=== PATIENT | female | born 1940 | race Caucasian/White ===

== ENCOUNTER 2016-10-01 11:49 | Emergency (ER) | payer MEDICARE, MEDICAID ==
[~2016-10-01] VITALS: Ht 157.5 cm; Wt 77.3 kg
[~2016-10-01 11:49] MED LIST: ESCI10TA PO; LEVO112T4 PO; LORA-192 PO; RISP1TAB89 PO; SIMV5TAB6 PO; TEMA15CA PO
[2016-10-01] MEDS ORDERED: ALBU8HFA4 IH (12:01)
[2016-10-01] MEDS ORDERED: METO-325 PO (12:01)
[2016-10-01] MEDS ORDERED: LORazepam 2 MG TABLET PO ONE (13:45)
[2016-10-01 16:40] VITALS: BP 146/96
== END 2016-10-01 17:47 | disposition home or self-care (01) ==
LOC: EMS 11:53
DX: R06.02 Shortness of breath (principal); F41.9 Anxiety disorder, unspecified; J45.909 Unspecified asthma, uncomplicated; E78.00 Pure hypercholesterolemia, unspecified; I10 Essential (primary) hypertension; E03.9 Hypothyroidism, unspecified; F17.200 Nicotine dependence, unspecified, uncomplicated
CPT/HCPCS: 99284; 99406

== ENCOUNTER 2017-03-31 00:01 | Outpatient (RCR) | payer MEDICARE, MEDICAID, SELFPAY ==
[2015-01-22 10:17] VITALS: BP 134/70
[~2017-03-31 00:01] MED LIST changes: +ADV250 IH; +ADV500 IH; +ADVAIR IH; +ALBU8HFA4 IH; +ALBUTEROL INH; +AMLO-511 PO; +AMLO1TAB12 PO; +AMLO2.5T PO; +CARV3 PO; +DIAZ5TAB4 PO; +FLUT1DIS3 IH; +LEVO150 PO; +LISI-660 PO; +LISI2.5T2 PO; +LORA0.5T2 PO; +LORA1TAB3 PO; +MACR100 PO; +METO50TA12 PO; +OMEP20 PO; +PGLA4I IM; +PREG75 GT; +RISP2 PO; +SIMV-260 PO; +TRAZ-147 PO; +TYL3 PO; +ZOLP10TA6 PO; +ZOLP10TA7 PO; +ZOLP5 PO; +ZOLP5TAB8 PO
== END 2017-04-29 | disposition home or self-care (01) ==
LOC: IOPBV 00:01
PROVIDERS: ATTEND Psychiatry & Neurology Psychiatry
DX: F25.9 Schizoaffective disorder, unspecified (principal); I51.89 Other ill-defined heart diseases; I10 Essential (primary) hypertension; J45.909 Unspecified asthma, uncomplicated; F32.9 Major depressive disorder, single episode, unspecified; F41.9 Anxiety disorder, unspecified; Z87.09 Personal history of other diseases of the respiratory system; Z87.42 Personal history of other diseases of the female genital tract; Z87.448 Personal history of other diseases of urinary system; Z90.5 Acquired absence of kidney; Z95.0 Presence of cardiac pacemaker
CPT/HCPCS: 90853

== ENCOUNTER 2017-07-05 12:38 | Inpatient (IN) | payer MEDICARE, MEDICAID ==
[~2017-07-05] VITALS: Ht 152.4 cm; Wt 76.0 kg
[~2017-07-05 12:38] MED LIST changes: -ADV250 IH; -ADV500 IH; -ADVAIR IH; -ALBUTEROL INH; -AMLO-511 PO; -AMLO1TAB12 PO; -AMLO2.5T PO; -CARV3 PO; -DIAZ5TAB4 PO; -FLUT1DIS3 IH; -LEVO150 PO; -LISI-660 PO; -LISI2.5T2 PO; -LORA0.5T2 PO; -LORA1TAB3 PO; -MACR100 PO; +METO-558 PO; -METO50TA12 PO; -OMEP20 PO; -PGLA4I IM; -PREG75 GT; -RISP2 PO; -SIMV-260 PO; -TRAZ-147 PO; -TYL3 PO; -ZOLP10TA6 PO; -ZOLP10TA7 PO; -ZOLP5 PO; -ZOLP5TAB8 PO
[2017-07-05] MEDS ORDERED: ACETAMINOPHEN 500 MG TABLET PO ONE (13:00)
[2017-07-05 13:32] LABS: EOSINOPHILS # (AUTO) 0.01 K/uL (0.00-0.70); EOSINOPHILS % (AUTO) 0.06 % (1.0-6.0); HEMATOCRIT 28.9 % (36-46); HEMOGLOBIN 9.4 g/dL (12.0-16.0); LYMPHOCYTES # (AUTO) 1.2 K/uL (1.0-4.8); LYMPHOCYTES % (AUTO) 12.7 % (22.0-44.0); MEAN CORPUSCULAR HEMOGLOBIN 28.9 pg (26.0-34.0); MEAN CORPUSCULAR HGB CONC 32.4 G/dL (31.0-37.0); MEAN CORPUSCULAR VOLUME 89 fL (80-100); MONOCYTES # (AUTO) 0.4 K/uL (0.1-1.0); MONOCYTES % (AUTO) 4.4 % (2.0-9.0); NEUTROPHILS # (AUTO) 7.9 K/uL (1.8-7.7); NEUTROPHILS % (AUTO) 82.7 % (40.0-70.0); PLATELET COUNT (AUTO) 301 K/uL (150-450); RED BLOOD CELL COUNT(AUTO) 3.23 MIL/uL (4.00-5.20); RED CELL DISTRIBUTION WIDTH 17.2 % (11.5-14.5); WHITE BLOOD COUNT (AUTO) 9.5 K/uL (4.5-11.0)
[2017-07-05 13:37] LABS: RBC MORPHOLOGY COMMENT ABNORMAL RBC MORPH
[2017-07-05 13:51] LABS: ANION GAP 17 mmol/L (8-16); CALCIUM, TOTAL 9.3 mg/dL (8.8-10.5); CARBON DIOXIDE 21 mmol/L (22-29); CHLORIDE 101 mmol/L (98-107); GLOMERULAR FILTR. RATE CALC 20 mL/min (>60); POTASSIUM 3.8 mmol/L (3.5-5.1); SODIUM SERUM 139 mmol/L (136-145); UREA NITROGEN, BLOOD 47 mg/dL (7-18)
[2017-07-05 13:58] LABS: ADD UA MICROSCOPIC YES; APPEARANCE,URINE CLOUDY (CLEAR); GLUCOSE, URINE (UA) NEGATIVE (NEGATIVE); KETONES,URINE NEGATIVE (NEGATIVE); LEUKOCYTE ESTERASE ,URINE SMALL (NEGATIVE); OCCULT BLOOD,URINE NEGATIVE (NEGATIVE); PROTEIN,URINE TRACE (NEGATIVE)
[2017-07-05 14:15] LABS: ALANINE AMINOTRANSFERASE 40 U/L (12-78); ALBUMIN 3.6 g/dL (3.4-5.0); ASPARTATE AMINOTRANSFERASE 51 U/L (15-37); BILIRUBIN,TOTAL 0.5 mg/dL (0.1-1.0); CREATINE KINASE MB 3.3 ng/mL (0-5); CREATINE KINASE, TOTAL 136 U/L (26-192)
[2017-07-05 14:22] LABS: RBC,URINE None Seen /HPF (0-2); SQUAMOUS EPITHELIAL CELL,UR Few /LPF (None Seen)
[2017-07-05] MEDS ORDERED: BISACODYL 10 MG RECTAL RECTAL SUPPOSITORY PR PRN (15:15)
[2017-07-05] MEDS ORDERED: MAGNESIUM HYDROXIDE SUSPENSION 30 ML UDCUP PO PRN (15:15)
[2017-07-05] MEDS ORDERED: ACETAMINOPHEN 325 MG TABLET PO PRN ×2 (15:15)
[2017-07-05] MEDS ORDERED: 0.9% SODIUM CHLORIDE 10 ML SYRINGE IVP PRN (15:15)
[2017-07-05] MEDS: SODIUM CHLORIDE 0.9% 1,000 ML IV SCH (15:38)
[2017-07-05] MEDS: CefTRIAXone 1 GM/DEXTROSE 50 ML IV SCH (15:59)
[2017-07-05] MEDS: HEPARIN SODIUM,PORCINE 5,000 UNITS/ML VIAL SQ SCH (16:00)
[2017-07-05 16:44] VITALS: BP 138/75
[2017-07-05] MEDS ORDERED: CARV25 PO (17:46)
[2017-07-05] MEDS ORDERED: FURO40I IM (17:46)
[2017-07-05] MEDS ORDERED: CLON-570 PO (17:46)
[2017-07-05] MEDS ORDERED: HYDR-2924 PO (17:46)
[2017-07-05] MEDS ORDERED: ASPI81 PO (17:47)
[2017-07-05] MEDS ORDERED: COD30 PO (17:47)
[2017-07-05] MEDS ORDERED: NIFE60TA71 PO (17:47)
[2017-07-05] MEDS ORDERED: ATOR10TA84 PO (17:49)
[2017-07-05 19:17] VITALS: BP 156/73
[2017-07-05] MEDS: DOCUSATE SODIUM 100 MG CAPSULE PO SCH (20:00)
[2017-07-06] VITALS (7 sets, daily range): BP systolic 158–190; BP diastolic 61–85
[2017-07-06] MEDS: HEPARIN SODIUM,PORCINE 5,000 UNITS/ML VIAL SQ SCH ×4 (00:40→23:38)
[2017-07-06] MEDS: SIMVASTATIN 10 MG TABLET PO SCH ×2 (00:40→20:18)
[2017-07-06] MEDS: LEVOTHYROXINE SODIUM 112 MCG TABLET PO SCH (07:04)
[2017-07-06 07:23] LABS: BASOPHILS # (AUTO) 0.02 K/uL (0.00-0.20); BASOPHILS % (AUTO) 0.3 % (0.0-2.0); EOSINOPHILS # (AUTO) 0.01 K/uL (0.00-0.70); HEMATOCRIT 24.6 % (36-46); HEMOGLOBIN 8.2 g/dL (12.0-16.0); LYMPHOCYTES # (AUTO) 1.5 K/uL (1.0-4.8); LYMPHOCYTES % (AUTO) 19.6 % (22.0-44.0); MEAN CORPUSCULAR HEMOGLOBIN 29.1 pg (26.0-34.0); MEAN CORPUSCULAR HGB CONC 33.5 G/dL (31.0-37.0); MEAN CORPUSCULAR VOLUME 87 fL (80-100); MONOCYTES # (AUTO) 0.4 K/uL (0.1-1.0); MONOCYTES % (AUTO) 5.1 % (2.0-9.0); NEUTROPHILS # (AUTO) 5.8 K/uL (1.8-7.7); NEUTROPHILS % (AUTO) 74.8 % (40.0-70.0); PLATELET COUNT (AUTO) 269 K/uL (150-450); RED BLOOD CELL COUNT(AUTO) 2.83 MIL/uL (4.00-5.20); WHITE BLOOD COUNT (AUTO) 7.7 K/uL (4.5-11.0)
[2017-07-06 07:31] LABS: ALBUMIN 2.9 g/dL (3.4-5.0); BILIRUBIN,TOTAL 0.4 mg/dL (0.1-1.0); CALCIUM, TOTAL 8.7 mg/dL (8.8-10.5); CREATININE 2.2 mg/dL (0.60-1.30); POTASSIUM 3.5 mmol/L (3.5-5.1); TOTAL PROTEIN, SERUM 6.9 g/dL (6.4-8.2)
[2017-07-06] MEDS: METOPROLOL SUCCINATE 50 MG ER TABLET PO SCH (08:03)
[2017-07-06] MEDS: PANTOPRAZOLE SODIUM 40 MG DR TABLET PO SCH (08:03)
[2017-07-06] MEDS: SODIUM CHLORIDE 0.9% 1,000 ML IV SCH (08:03)
[2017-07-06] MEDS: DOCUSATE SODIUM 100 MG CAPSULE PO SCH ×2 (08:03→20:19)
[2017-07-06] MEDS: NIFEdipine 60 MG ER TABLET PO SCH ×2 (11:58→20:19)
[2017-07-06] MEDS ORDERED: FUROSEMIDE 20 MG/2 ML VIAL IVP ONE ×2 (13:30→14:30)
[2017-07-06] MEDS ORDERED: ALBUTEROL SULFATE 2.5 MG/0.5 ML NEB SOLUTION NEB PRN (13:30)
[2017-07-06] MEDS: IPRATROPIUM BROMIDE 0.5 MG/2.5 ML NEB SOLUTION NEB PRN (14:00)
[2017-07-06 14:09] LABS: ABG BASE EXCESS -7.9 mmol/L (-2.0-3.0); ABG HCO3 18.4 mmol/L (22.0-26.0); ABG OXYHEMOGLOBIN 95.8 % (94.0-100.0); ABG PCO2 43 mmHg (35-45); ABG PH 7.265 (7.35-7.450)
[2017-07-06 14:10] LABS: ABG A-A DIFF O2 556.5 mmHg (10-20.0); ALLEN TEST, BLOOD GAS Positive
[2017-07-06] MEDS: CefTRIAXone 1 GM/DEXTROSE 50 ML IV SCH (15:30)
[2017-07-06] MEDS: HydrALAZINE HCL 50 MG TABLET PO SCH ×2 (17:24→20:18)
[2017-07-06] MEDS: CloNIDine HCL 0.1 MG TABLET PO SCH ×2 (17:24→20:19)
[2017-07-06] MEDS: FUROSEMIDE 40 MG/4 ML VIAL IVP SCH (20:18)
[2017-07-06] MEDS ORDERED: FUROSEMIDE 20 MG/2 ML VIAL IVP SCH (21:00)
[2017-07-07] VITALS (8 sets, daily range): BP systolic 148–161; BP diastolic 61–88
[2017-07-07 06:10] LABS: BASOPHILS % (AUTO) 1.2 % (0.0-2.0); EOSINOPHILS % (AUTO) 0.1 % (1.0-6.0); HEMATOCRIT 24.1 % (36-46); LYMPHOCYTES # (AUTO) 1.7 K/uL (1.0-4.8); LYMPHOCYTES % (AUTO) 18.8 % (22.0-44.0); MEAN CORPUSCULAR HEMOGLOBIN 29.2 pg (26.0-34.0); MEAN CORPUSCULAR VOLUME 88 fL (80-100); MONOCYTES # (AUTO) 0.6 K/uL (0.1-1.0); MONOCYTES % (AUTO) 6.7 % (2.0-9.0); NEUTROPHILS # (AUTO) 6.5 K/uL (1.8-7.7); NEUTROPHILS % (AUTO) 73.2 % (40.0-70.0); PLATELET COUNT (AUTO) 233 K/uL (150-450); RED BLOOD CELL COUNT(AUTO) 2.73 MIL/uL (4.00-5.20); RED CELL DISTRIBUTION WIDTH 16.9 % (11.5-14.5); WHITE BLOOD COUNT (AUTO) 8.9 K/uL (4.5-11.0)
[2017-07-07 06:13] LABS: ALBUMIN 2.7 g/dL (3.4-5.0); BILIRUBIN,TOTAL 0.3 mg/dL (0.1-1.0); CALCIUM, TOTAL 8.5 mg/dL (8.8-10.5); CREATININE 2.17 mg/dL (0.60-1.30); POTASSIUM 3.6 mmol/L (3.5-5.1); TOTAL PROTEIN, SERUM 6.6 g/dL (6.4-8.2)
[2017-07-07] MEDS: LEVOTHYROXINE SODIUM 112 MCG TABLET PO SCH (06:20)
[2017-07-07] MEDS: DOCUSATE SODIUM 100 MG CAPSULE PO SCH ×2 (09:43→20:57)
[2017-07-07] MEDS: HEPARIN SODIUM,PORCINE 5,000 UNITS/ML VIAL SQ SCH ×3 (09:43→23:17)
[2017-07-07] MEDS: ATORVASTATIN CALCIUM 10 MG TABLET PO SCH (09:43)
[2017-07-07] MEDS: FUROSEMIDE 40 MG/4 ML VIAL IVP SCH ×3 (09:43→20:57)
[2017-07-07] MEDS: PANTOPRAZOLE SODIUM 40 MG DR TABLET PO SCH (09:43)
[2017-07-07] MEDS: MULTIVITAMINS WITH MINERALS, THERAPEUTIC TABLET PO SCH (09:45)
[2017-07-07] MEDS: METOPROLOL SUCCINATE 50 MG ER TABLET PO SCH (09:48)
[2017-07-07] MEDS: CloNIDine HCL 0.1 MG TABLET PO SCH ×3 (09:48→20:57)
[2017-07-07] MEDS: HydrALAZINE HCL 50 MG TABLET PO SCH ×3 (12:32→20:57)
[2017-07-07] MEDS: NIFEdipine 60 MG ER TABLET PO SCH ×2 (12:32→20:57)
[2017-07-07] MEDS: CefTRIAXone 1 GM/DEXTROSE 50 ML IV SCH (15:53)
[2017-07-07] MEDS: MORPHINE SULFATE 2 MG/ML SYRINGE IVP PRN (15:54)
[2017-07-07] MEDS: SIMVASTATIN 10 MG TABLET PO SCH (20:57)
[2017-07-08 00:11] VITALS: BP 157/67
[2017-07-08 05:23] VITALS: BP 160/70
[2017-07-08 06:01] LABS: BASOPHILS % (AUTO) 0.7 % (0.0-2.0); EOSINOPHILS % (AUTO) 0.3 % (1.0-6.0); HEMATOCRIT 23.6 % (36-46); HEMOGLOBIN 7.7 g/dL (12.0-16.0); LYMPHOCYTES % (AUTO) 24.2 % (22.0-44.0); MEAN CORPUSCULAR HEMOGLOBIN 28.9 pg (26.0-34.0); MEAN CORPUSCULAR HGB CONC 32.8 G/dL (31.0-37.0); MEAN CORPUSCULAR VOLUME 88 fL (80-100); MONOCYTES # (AUTO) 0.4 K/uL (0.1-1.0); MONOCYTES % (AUTO) 4.3 % (2.0-9.0); NEUTROPHILS # (AUTO) 5.8 K/uL (1.8-7.7); NEUTROPHILS % (AUTO) 70.5 % (40.0-70.0); PLATELET COUNT (AUTO) 222 K/uL (150-450); RED BLOOD CELL COUNT(AUTO) 2.67 MIL/uL (4.00-5.20); RED CELL DISTRIBUTION WIDTH 17.2 % (11.5-14.5); WHITE BLOOD COUNT (AUTO) 8.2 K/uL (4.5-11.0)
[2017-07-08 06:17] LABS: ALBUMIN 2.8 g/dL (3.4-5.0); BILIRUBIN,TOTAL 0.3 mg/dL (0.1-1.0); CALCIUM, TOTAL 8.6 mg/dL (8.8-10.5); CREATININE 2.22 mg/dL (0.60-1.30); POTASSIUM 3.5 mmol/L (3.5-5.1); TOTAL PROTEIN, SERUM 6.5 g/dL (6.4-8.2)
[2017-07-08] MEDS: LEVOTHYROXINE SODIUM 112 MCG TABLET PO SCH (06:34)
[2017-07-08 07:25] VITALS: BP 158/73
[2017-07-08] MEDS: HEPARIN SODIUM,PORCINE 5,000 UNITS/ML VIAL SQ SCH ×2 (08:22→15:08)
[2017-07-08] MEDS: FUROSEMIDE 40 MG/4 ML VIAL IVP SCH (08:22)
[2017-07-08] MEDS: ATORVASTATIN CALCIUM 10 MG TABLET PO SCH (08:26)
[2017-07-08] MEDS: HydrALAZINE HCL 50 MG TABLET PO SCH ×3 (08:26→20:46)
[2017-07-08] MEDS: MULTIVITAMINS WITH MINERALS, THERAPEUTIC TABLET PO SCH (08:26)
[2017-07-08] MEDS: DOCUSATE SODIUM 100 MG CAPSULE PO SCH ×2 (08:26→20:46)
[2017-07-08] MEDS: PANTOPRAZOLE SODIUM 40 MG DR TABLET PO SCH (08:26)
[2017-07-08] MEDS: NIFEdipine 60 MG ER TABLET PO SCH ×2 (08:27→20:47)
[2017-07-08] MEDS: CloNIDine HCL 0.1 MG TABLET PO SCH ×3 (09:54→20:47)
[2017-07-08] MEDS: METOPROLOL SUCCINATE 50 MG ER TABLET PO SCH (09:54)
[2017-07-08 11:27] VITALS: BP 160/71
[2017-07-08] MEDS: HYDROCODONE/ACETAMINOPHEN 5-325 MG TABLET PO PRN (14:32)
[2017-07-08] MEDS: BUMETANIDE 0.25 MG/ML 10 ML VIAL IVP SCH ×2 (15:06→23:43)
[2017-07-08] MEDS: CefTRIAXone 1 GM/DEXTROSE 50 ML IV SCH (15:09)
[2017-07-08 15:23] VITALS: BP 156/61
[2017-07-08 19:40] VITALS: BP 154/50
[2017-07-08] MEDS: SIMVASTATIN 10 MG TABLET PO SCH (20:46)
[2017-07-08] MEDS ORDERED: PANTOPRAZOLE SODIUM 40 MG/VIAL IVP SCH (22:00)
[2017-07-08 22:36] LABS: HEMATOCRIT 18.1 % (36-46); HEMOGLOBIN 6.1 g/dL (12.0-16.0)
[2017-07-08] MEDS ORDERED: SODIUM CHLORIDE 0.9% 500 ML IV ONE (23:37)
[2017-07-09] VITALS (34 sets, daily range): BP systolic 151–207; BP diastolic 66–113
[2017-07-09] MEDS: PANTOPRAZOLE SODIUM 80 MG in SODIUM CHLORIDE 0.9% 100 ML IV SCH ×3 (00:59→20:06)
[2017-07-09] MEDS: HYDROCODONE/ACETAMINOPHEN 5-325 MG TABLET PO PRN ×2 (01:30→20:06)
[2017-07-09 06:14] LABS: BASOPHILS % (AUTO) 1.8 % (0.0-2.0); EOSINOPHILS % (AUTO) 0.2 % (1.0-6.0); HEMATOCRIT 22.4 % (36-46); HEMOGLOBIN 7.4 g/dL (12.0-16.0); LYMPHOCYTES # (AUTO) 2.1 K/uL (1.0-4.8); LYMPHOCYTES % (AUTO) 27.5 % (22.0-44.0); MEAN CORPUSCULAR HEMOGLOBIN 28.9 pg (26.0-34.0); MEAN CORPUSCULAR HGB CONC 32.9 G/dL (31.0-37.0); MEAN CORPUSCULAR VOLUME 88 fL (80-100); MONOCYTES # (AUTO) 0.4 K/uL (0.1-1.0); MONOCYTES % (AUTO) 5.8 % (2.0-9.0); NEUTROPHILS % (AUTO) 64.7 % (40.0-70.0); PLATELET COUNT (AUTO) 214 K/uL (150-450); RED BLOOD CELL COUNT(AUTO) 2.55 MIL/uL (4.00-5.20); RED CELL DISTRIBUTION WIDTH 16.6 % (11.5-14.5); WHITE BLOOD COUNT (AUTO) 7.8 K/uL (4.5-11.0)
[2017-07-09] MEDS: LEVOTHYROXINE SODIUM 112 MCG TABLET PO SCH (06:30)
[2017-07-09 07:16] LABS: CALCIUM, TOTAL 8.3 mg/dL (8.8-10.5); CREATININE 2.05 mg/dL (0.60-1.30); MAGNESIUM 2.2 mg/dL (1.80-2.40); PHOSPHORUS 3.3 mg/dL (2.5-4.9); POTASSIUM 3.9 mmol/L (3.5-5.1)
[2017-07-09] MEDS: ATORVASTATIN CALCIUM 10 MG TABLET PO SCH (08:44)
[2017-07-09] MEDS: METOPROLOL SUCCINATE 50 MG ER TABLET PO SCH (08:44)
[2017-07-09] MEDS: DOCUSATE SODIUM 100 MG CAPSULE PO SCH ×2 (08:44→20:06)
[2017-07-09] MEDS: BUMETANIDE 0.25 MG/ML 10 ML VIAL IVP SCH ×2 (08:44→20:05)
[2017-07-09] MEDS: HydrALAZINE HCL 50 MG TABLET PO SCH ×3 (08:44→20:05)
[2017-07-09] MEDS: CloNIDine HCL 0.1 MG TABLET PO SCH ×3 (08:44→20:06)
[2017-07-09] MEDS: NIFEdipine 60 MG ER TABLET PO SCH ×2 (08:44→20:52)
[2017-07-09] MEDS: MULTIVITAMINS WITH MINERALS, THERAPEUTIC TABLET PO SCH (08:44)
[2017-07-09 11:34] LABS: HEMOGLOBIN 6.7 g/dL (12.0-16.0)
[2017-07-09 11:35] LABS: HEMATOCRIT 20.2 % (36-46)
[2017-07-09] MEDS ORDERED: METOLAZONE 5 MG TABLET PO ONE (11:45)
[2017-07-09] MEDS ORDERED: SODIUM CHLORIDE 0.9% 500 ML IV ONE ×2 (12:23→17:14)
[2017-07-09 14:53] LABS: INR 1.3 (0.9-1.1); PROTHROMBIN TIME 13.4 SEC (9.4-11.6)
[2017-07-09 15:52] LABS: ABG A-A DIFF O2 70.7 mmHg (10-20.0); ABG BASE EXCESS -1.3 mmol/L (-2.0-3.0); ABG HCO3 23.6 mmol/L (22.0-26.0); ABG OXYHEMOGLOBIN 96.5 % (94.0-100.0); ABG PCO2 31 mmHg (35-45); ABG PH 7.475 (7.35-7.450); TEMPERATURE, FAHRENHEIT, BG 97.8 FAHREN (96.0-98.6)
[2017-07-09] MEDS ORDERED: SODIUM CHLORIDE 0.9% 1,000 ML IV ONE (16:16)
[2017-07-09 16:17] LABS: ALLEN TEST, BLOOD GAS POS
[2017-07-09 16:18] LABS: IPAP, BG 14 cm H2O
[2017-07-09] MEDS: CefTRIAXone 1 GM/DEXTROSE 50 ML IV SCH (17:11)
[2017-07-09] MEDS ORDERED: LIDOCAINE HCL 1% 10 ML VIAL SQ ONE (18:45)
[2017-07-09] MEDS ORDERED: 0.9% SODIUM CHLORIDE 10 ML SYRINGE IVP PRN (18:45)
[2017-07-09] MEDS: SIMVASTATIN 10 MG TABLET PO SCH (20:06)
[2017-07-09 21:45] LABS: HEMATOCRIT 27.7 % (36-46)
[2017-07-10] VITALS (23 sets, daily range): BP systolic 155–214; BP diastolic 60–85
[2017-07-10] MEDS ORDERED: CloNIDine HCL 0.2 MG TABLET PO PRN
[2017-07-10 05:35] LABS: BASOPHILS # (AUTO) 0.04 K/uL (0.00-0.20); BASOPHILS % (AUTO) 0.5 % (0.0-2.0); EOSINOPHILS # (AUTO) 0.03 K/uL (0.00-0.70); EOSINOPHILS % (AUTO) 0.32 % (1.0-6.0); LYMPHOCYTES % (AUTO) 24.6 % (22.0-44.0); MEAN CORPUSCULAR HGB CONC 33.7 G/dL (31.0-37.0); MEAN CORPUSCULAR VOLUME 89 fL (80-100); MONOCYTES # (AUTO) 0.5 K/uL (0.1-1.0); MONOCYTES % (AUTO) 6.5 % (2.0-9.0); NEUTROPHILS # (AUTO) 5.6 K/uL (1.8-7.7); NEUTROPHILS % (AUTO) 68.1 % (40.0-70.0); RED BLOOD CELL COUNT(AUTO) 2.34 MIL/uL (4.00-5.20); RED CELL DISTRIBUTION WIDTH 15.2 % (11.5-14.5); WHITE BLOOD COUNT (AUTO) 8.2 K/uL (4.5-11.0)
[2017-07-10] MEDS: LEVOTHYROXINE SODIUM 112 MCG TABLET PO SCH (05:35)
[2017-07-10] MEDS: HydrALAZINE HCL 20 MG/ML VIAL IVP PRN (05:42)
[2017-07-10 05:44] LABS: CALCIUM, TOTAL 7.7 mg/dL (8.8-10.5); CREATININE 1.96 mg/dL (0.60-1.30); POTASSIUM 3.9 mmol/L (3.5-5.1)
[2017-07-10 06:16] LABS: HEMATOCRIT 20.8 % (36-46)
[2017-07-10] MEDS: PANTOPRAZOLE SODIUM 80 MG in SODIUM CHLORIDE 0.9% 100 ML IV SCH ×2 (06:38→16:04)
[2017-07-10 07:07] LABS: PLATELET COUNT (AUTO) 129 K/uL (150-450)
[2017-07-10] MEDS ORDERED: SODIUM CHLORIDE 0.9% 500 ML IV ONE (08:16)
[2017-07-10] MEDS ORDERED: DESMOPRESSIN ACETATE 20 MCG in SODIUM CHLORIDE 0.9% 50 ML IV ONE (08:45)
[2017-07-10] MEDS: CloNIDine HCL 0.2 MG TABLET PO SCH ×3 (09:00→20:36)
[2017-07-10] MEDS: DOCUSATE SODIUM 100 MG CAPSULE PO SCH ×2 (09:00→20:37)
[2017-07-10] MEDS: CARVEDILOL 25 MG TABLET PO SCH ×2 (09:00→20:37)
[2017-07-10] MEDS: ATORVASTATIN CALCIUM 10 MG TABLET PO SCH (09:00)
[2017-07-10] MEDS: METOPROLOL SUCCINATE 50 MG ER TABLET PO SCH (09:00)
[2017-07-10] MEDS: HydrALAZINE HCL 50 MG TABLET PO SCH ×3 (09:00→20:36)
[2017-07-10] MEDS: MULTIVITAMINS WITH MINERALS, THERAPEUTIC TABLET PO SCH (09:00)
[2017-07-10] MEDS: NIFEdipine 60 MG ER TABLET PO SCH ×2 (09:00→20:37)
[2017-07-10] MEDS: BUMETANIDE 0.25 MG/ML 10 ML VIAL IVP SCH ×2 (09:13→20:36)
[2017-07-10] MEDS: LABETALOL HCL 5 MG/ML 20 ML VIAL IVP PRN ×2 (09:14→11:10)
[2017-07-10] MEDS: EPOETIN ALFA 10,000 UNITS/ML VIAL SQ SCH (11:40)
[2017-07-10 11:41] LABS: HEMATOCRIT 22.4 % (36-46); HEMOGLOBIN 7.8 g/dL (12.0-16.0)
[2017-07-10] MEDS ORDERED: LIDOCAINE HCL/PF 2% 5 ML VIAL INJ ONE (12:00)
[2017-07-10] MEDS ORDERED: PHENYLEPHRINE HCL 10 MG/ML VIAL IVP ONE (12:00)
[2017-07-10] MEDS ORDERED: MIDAZOLAM HCL 5 MG/ML VIAL ONE (12:15)
[2017-07-10] MEDS ORDERED: FentaNYL CITRATE-PF 100 MCG/2 ML VIAL ONE (12:15)
[2017-07-10] MEDS ORDERED: SODIUM CHLORIDE 0.9% 1,000 ML IV ONE (12:25)
[2017-07-10] MEDS: ONDANSETRON HCL 4 MG/2 ML VIAL IVP PRN (12:57)
[2017-07-10] MEDS ORDERED: EPINEPHrine 1:10,000 [1 MG/10 ML] SYRINGE ONE (13:01)
[2017-07-10] MEDS: HYDROCODONE/ACETAMINOPHEN 5-325 MG TABLET PO PRN (13:37)
[2017-07-10] MEDS ORDERED: SODIUM CHLORIDE 0.9% 100 ML ONE (15:41)
[2017-07-10] MEDS: CefTRIAXone 1 GM/DEXTROSE 50 ML IV SCH (16:03)
[2017-07-10 17:17] LABS: HEMATOCRIT 20.1 % (36-46); HEMOGLOBIN 6.8 g/dL (12.0-16.0)
[2017-07-10] MEDS: MORPHINE SULFATE 2 MG/ML SYRINGE IVP PRN (19:25)
[2017-07-10] MEDS: SIMVASTATIN 10 MG TABLET PO SCH (20:36)
[2017-07-10 22:19] LABS: HEMATOCRIT 22.7 % (36-46); HEMOGLOBIN 7.7 g/dL (12.0-16.0)
[2017-07-11] VITALS (21 sets, daily range): BP systolic 113–167; BP diastolic 45–71
[2017-07-11] MEDS: PANTOPRAZOLE SODIUM 80 MG in SODIUM CHLORIDE 0.9% 100 ML IV SCH ×3 (02:07→22:36)
[2017-07-11 05:11] LABS: BASOPHILS # (AUTO) 0.06 K/uL (0.00-0.20); BASOPHILS % (AUTO) 0.6 % (0.0-2.0); EOSINOPHILS # (AUTO) 0.04 K/uL (0.00-0.70); EOSINOPHILS % (AUTO) 0.44 % (1.0-6.0); HEMATOCRIT 22.5 % (36-46); HEMOGLOBIN 7.5 g/dL (12.0-16.0); LYMPHOCYTES % (AUTO) 21.8 % (22.0-44.0); MEAN CORPUSCULAR HEMOGLOBIN 29.3 pg (26.0-34.0); MEAN CORPUSCULAR HGB CONC 33.3 G/dL (31.0-37.0); MEAN CORPUSCULAR VOLUME 88 fL (80-100); MONOCYTES # (AUTO) 0.7 K/uL (0.1-1.0); MONOCYTES % (AUTO) 7.2 % (2.0-9.0); NEUTROPHILS # (AUTO) 6.3 K/uL (1.8-7.7); PLATELET COUNT (AUTO) 119 K/uL (150-450); RED BLOOD CELL COUNT(AUTO) 2.55 MIL/uL (4.00-5.20); RED CELL DISTRIBUTION WIDTH 16.4 % (11.5-14.5)
[2017-07-11 05:18] LABS: CREATININE 2.06 mg/dL (0.60-1.30); MAGNESIUM 2.1 mg/dL (1.80-2.40); POTASSIUM 3.9 mmol/L (3.5-5.1)
[2017-07-11] MEDS: LEVOTHYROXINE SODIUM 112 MCG TABLET PO SCH (06:11)
[2017-07-11] MEDS: MULTIVITAMINS WITH MINERALS, THERAPEUTIC TABLET PO SCH (07:55)
[2017-07-11] MEDS: NIFEdipine 60 MG ER TABLET PO SCH ×2 (07:55→20:13)
[2017-07-11] MEDS: ATORVASTATIN CALCIUM 10 MG TABLET PO SCH (07:55)
[2017-07-11] MEDS: DOCUSATE SODIUM 100 MG CAPSULE PO SCH ×2 (07:55→20:13)
[2017-07-11] MEDS: METOPROLOL SUCCINATE 50 MG ER TABLET PO SCH (07:55)
[2017-07-11] MEDS: HydrALAZINE HCL 50 MG TABLET PO SCH ×3 (07:56→20:13)
[2017-07-11] MEDS: CARVEDILOL 25 MG TABLET PO SCH ×2 (07:56→21:20)
[2017-07-11] MEDS: BUMETANIDE 0.25 MG/ML 10 ML VIAL IVP SCH (07:57)
[2017-07-11] MEDS: CloNIDine HCL 0.2 MG TABLET PO SCH ×3 (07:57→20:13)
[2017-07-11 10:27] LABS: HEMOGLOBIN 5.9 g/dL (12.0-16.0)
[2017-07-11] MEDS ORDERED: SODIUM CHLORIDE 0.9% 500 ML IV ONE (10:55)
[2017-07-11] MEDS ORDERED: EPINEPHrine 1:10,000 [1 MG/10 ML] SYRINGE ONE ×2 (12:15→12:43)
[2017-07-11] MEDS ORDERED: EPINEPHrine 1:10,000 [1 MG/10 ML] SYRINGE IVP ONE (12:30)
[2017-07-11] MEDS ORDERED: GLUCAGON,HUMAN RECOMBINANT 1 MG VIAL ONE (12:43)
[2017-07-11] MEDS: ONDANSETRON HCL 4 MG/2 ML VIAL IVP PRN (12:46)
[2017-07-11] MEDS: DEXTROSE 5%-WATER 1,000 ML IV SCH (12:46)
[2017-07-11] MEDS: CefTRIAXone 1 GM/DEXTROSE 50 ML IV SCH (15:49)
[2017-07-11 18:15] LABS: HEMATOCRIT 25.9 % (36-46); HEMOGLOBIN 8.9 g/dL (12.0-16.0)
[2017-07-11] MEDS: HYDROCODONE/ACETAMINOPHEN 5-325 MG TABLET PO PRN (20:12)
[2017-07-11] MEDS: SIMVASTATIN 10 MG TABLET PO SCH (20:13)
[2017-07-11] MEDS: ZOLPIDEM TARTRATE 5 MG TABLET PO PRN (22:36)
[2017-07-12] VITALS (8 sets, daily range): BP systolic 120–159; BP diastolic 56–68
[2017-07-12 00:09] LABS: HEMATOCRIT 24.1 % (36-46); HEMOGLOBIN 8.3 g/dL (12.0-16.0)
[2017-07-12] MEDS ORDERED: LIDOCAINE HCL/PF 2% 5 ML VIAL IM ONE (04:00)
[2017-07-12] MEDS ORDERED: PROPOFOL 1% 20 ML VIAL IVP ONE (04:00)
[2017-07-12 05:20] LABS: CALCIUM, TOTAL 7.9 mg/dL (8.8-10.5); CREATININE 2.17 mg/dL (0.60-1.30); MAGNESIUM 2.1 mg/dL (1.80-2.40); PHOSPHORUS 3.7 mg/dL (2.5-4.9); POTASSIUM 3.7 mmol/L (3.5-5.1)
[2017-07-12 05:25] LABS: HEMATOCRIT 24.9 % (36-46); HEMOGLOBIN 8.5 g/dL (12.0-16.0)
[2017-07-12] MEDS: LEVOTHYROXINE SODIUM 112 MCG TABLET PO SCH (05:59)
[2017-07-12] MEDS: PANTOPRAZOLE SODIUM 80 MG in SODIUM CHLORIDE 0.9% 100 ML IV SCH ×2 (08:06→19:13)
[2017-07-12] MEDS ORDERED: BUMETANIDE 0.25 MG/ML 10 ML VIAL IVP SCH (09:00)
[2017-07-12] MEDS: HydrALAZINE HCL 50 MG TABLET PO SCH ×3 (10:27→21:00)
[2017-07-12] MEDS: ATORVASTATIN CALCIUM 10 MG TABLET PO SCH (10:28)
[2017-07-12] MEDS: CloNIDine HCL 0.2 MG TABLET PO SCH ×3 (10:28→21:00)
[2017-07-12] MEDS: DOCUSATE SODIUM 100 MG CAPSULE PO SCH ×2 (10:28→21:00)
[2017-07-12] MEDS: CARVEDILOL 25 MG TABLET PO SCH ×2 (10:28→21:39)
[2017-07-12] MEDS: METOPROLOL SUCCINATE 50 MG ER TABLET PO SCH (10:29)
[2017-07-12] MEDS: NIFEdipine 60 MG ER TABLET PO SCH ×2 (10:29→21:00)
[2017-07-12] MEDS: MULTIVITAMINS WITH MINERALS, THERAPEUTIC TABLET PO SCH (10:29)
[2017-07-12] MEDS: EPOETIN ALFA 10,000 UNITS/ML VIAL SQ SCH (10:29)
[2017-07-12 13:06] LABS: HEMATOCRIT 23.2 % (36-46)
[2017-07-12] MEDS: CefTRIAXone 1 GM/DEXTROSE 50 ML IV SCH (16:00)
[2017-07-12 18:11] LABS: HEMATOCRIT 23.2 % (36-46)
[2017-07-12] MEDS: DEXTROSE 5%-WATER 1,000 ML IV SCH (21:39)
[2017-07-12] MEDS: SIMVASTATIN 10 MG TABLET PO SCH (21:40)
[2017-07-12] MEDS: MORPHINE SULFATE 2 MG/ML SYRINGE IVP PRN (21:40)
[2017-07-13] VITALS (8 sets, daily range): BP systolic 126–168; BP diastolic 57–112
[2017-07-13] MEDS: PANTOPRAZOLE SODIUM 80 MG in SODIUM CHLORIDE 0.9% 100 ML IV SCH ×2 (03:20→13:09)
[2017-07-13] MEDS: MORPHINE SULFATE 2 MG/ML SYRINGE IVP PRN ×2 (03:21→19:47)
[2017-07-13 04:59] LABS: HEMATOCRIT 22.2 % (36-46); HEMOGLOBIN 7.6 g/dL (12.0-16.0)
[2017-07-13 05:11] LABS: CALCIUM, TOTAL 7.4 mg/dL (8.8-10.5); CREATININE 2.24 mg/dL (0.60-1.30); PHOSPHORUS 3.3 mg/dL (2.5-4.9); POTASSIUM 3.7 mmol/L (3.5-5.1)
[2017-07-13] MEDS: LEVOTHYROXINE SODIUM 112 MCG TABLET PO SCH (05:40)
[2017-07-13 08:37] LABS: GLUCOSE,POINT OF CARE 130 MG/DL (70-110)
[2017-07-13 08:38] LABS: HEMATOCRIT 24.4 % (36-46); HEMOGLOBIN 8.3 g/dL (12.0-16.0)
[2017-07-13] MEDS: DOCUSATE SODIUM 100 MG CAPSULE PO SCH ×2 (08:58→19:47)
[2017-07-13] MEDS: CloNIDine HCL 0.2 MG TABLET PO SCH ×3 (08:58→21:15)
[2017-07-13] MEDS: MULTIVITAMINS WITH MINERALS, THERAPEUTIC TABLET PO SCH (08:58)
[2017-07-13] MEDS: HydrALAZINE HCL 50 MG TABLET PO SCH ×3 (08:58→21:15)
[2017-07-13] MEDS: CARVEDILOL 25 MG TABLET PO SCH ×2 (08:58→19:47)
[2017-07-13] MEDS: NIFEdipine 60 MG ER TABLET PO SCH ×2 (08:58→19:47)
[2017-07-13] MEDS: METOPROLOL SUCCINATE 50 MG ER TABLET PO SCH (08:58)
[2017-07-13] MEDS: ATORVASTATIN CALCIUM 10 MG TABLET PO SCH (08:59)
[2017-07-13] MEDS: HYDROCODONE/ACETAMINOPHEN 5-325 MG TABLET PO PRN (09:05)
[2017-07-13] MEDS ORDERED: BUMETANIDE 0.25 MG/ML 4 ML VIAL IVP SCH (09:31)
[2017-07-13] MEDS: BUMETANIDE 0.25 MG/ML 4 ML VIAL IVP SCH (09:46)
[2017-07-13] MEDS: DEXTROSE 5%-WATER 1,000 ML IV SCH (10:27)
[2017-07-13] MEDS: IPRATROPIUM BROMIDE 0.5 MG/2.5 ML NEB SOLUTION NEB PRN (15:03)
[2017-07-13] MEDS: ALBUTEROL SULFATE 2.5 MG/0.5 ML NEB SOLUTION NEB PRN (15:03)
[2017-07-13] MEDS ORDERED: SODIUM CHLORIDE 0.9% 50 ML ONE (17:06)
[2017-07-13] MEDS: CefTRIAXone 1 GM/DEXTROSE 50 ML IV SCH (17:11)
[2017-07-13] MEDS: PANTOPRAZOLE SODIUM 40 MG DR TABLET PO SCH (19:47)
[2017-07-13] MEDS: SIMVASTATIN 10 MG TABLET PO SCH (19:47)
[2017-07-13] MEDS: LABETALOL HCL 5 MG/ML 20 ML VIAL IVP PRN (23:01)
[2017-07-14] VITALS (9 sets, daily range): BP systolic 128–167; BP diastolic 63–87
[2017-07-14 06:01] LABS: CALCIUM, TOTAL 8.2 mg/dL (8.8-10.5); CREATININE 2.59 mg/dL (0.60-1.30); MAGNESIUM 2.3 mg/dL (1.80-2.40); PHOSPHORUS 3.8 mg/dL (2.5-4.9); POTASSIUM 3.8 mmol/L (3.5-5.1)
[2017-07-14] MEDS: LEVOTHYROXINE SODIUM 112 MCG TABLET PO SCH (06:36)
[2017-07-14] MEDS: EPOETIN ALFA 10,000 UNITS/ML VIAL SQ SCH (09:50)
[2017-07-14] MEDS: NIFEdipine 60 MG ER TABLET PO SCH ×2 (09:50→20:39)
[2017-07-14] MEDS: DOCUSATE SODIUM 100 MG CAPSULE PO SCH ×2 (09:51→20:39)
[2017-07-14] MEDS: MULTIVITAMINS WITH MINERALS, THERAPEUTIC TABLET PO SCH (09:51)
[2017-07-14] MEDS: ATORVASTATIN CALCIUM 10 MG TABLET PO SCH (09:51)
[2017-07-14] MEDS: PANTOPRAZOLE SODIUM 40 MG DR TABLET PO SCH ×2 (09:51→20:39)
[2017-07-14] MEDS: HydrALAZINE HCL 20 MG/ML VIAL IVP PRN (09:52)
[2017-07-14] MEDS: MORPHINE SULFATE 2 MG/ML SYRINGE IVP PRN (09:55)
[2017-07-14] MEDS: METOPROLOL SUCCINATE 50 MG ER TABLET PO SCH (09:58)
[2017-07-14] MEDS: HydrALAZINE HCL 50 MG TABLET PO SCH ×3 (10:36→23:40)
[2017-07-14] MEDS: CloNIDine HCL 0.2 MG TABLET PO SCH ×3 (10:36→23:40)
[2017-07-14] MEDS: BUMETANIDE 0.25 MG/ML 4 ML VIAL IVP SCH ×2 (10:37→21:00)
[2017-07-14] MEDS: CARVEDILOL 25 MG TABLET PO SCH ×2 (12:10→20:38)
[2017-07-14 15:37] LABS: BASOPHILS % (AUTO) 0.7 % (0.0-2.0); EOSINOPHILS % (AUTO) 0.5 % (1.0-6.0); HEMATOCRIT 23.7 % (36-46); HEMOGLOBIN 8.1 g/dL (12.0-16.0); LYMPHOCYTES # (AUTO) 1.4 K/uL (1.0-4.8); LYMPHOCYTES % (AUTO) 14.5 % (22.0-44.0); MEAN CORPUSCULAR HEMOGLOBIN 30.6 pg (26.0-34.0); MEAN CORPUSCULAR HGB CONC 34.2 G/dL (31.0-37.0); MEAN CORPUSCULAR VOLUME 89 fL (80-100); MONOCYTES # (AUTO) 0.4 K/uL (0.1-1.0); MONOCYTES % (AUTO) 3.6 % (2.0-9.0); NEUTROPHILS # (AUTO) 7.8 K/uL (1.8-7.7); NEUTROPHILS % (AUTO) 80.7 % (40.0-70.0); PLATELET COUNT (AUTO) 194 K/uL (150-450); RED BLOOD CELL COUNT(AUTO) 2.65 MIL/uL (4.00-5.20); RED CELL DISTRIBUTION WIDTH 15.3 % (11.5-14.5); WHITE BLOOD COUNT (AUTO) 9.7 K/uL (4.5-11.0)
[2017-07-14] MEDS ORDERED: SODIUM CHLORIDE 0.9% 100 ML ONE (16:00)
[2017-07-14] MEDS: CefTRIAXone 1 GM/DEXTROSE 50 ML IV SCH (16:47)
[2017-07-14] MEDS ORDERED: BUMETANIDE 0.25 MG/ML 10 ML VIAL IVP SCH (21:00)
[2017-07-14] MEDS: SIMVASTATIN 10 MG TABLET PO SCH (23:40)
[2017-07-15] VITALS (10 sets, daily range): BP systolic 128–154; BP diastolic 53–84
[2017-07-15] MEDS ORDERED: 0.9% SODIUM CHLORIDE 5 ML NEB SOLUTION NEB ONE (01:08)
[2017-07-15] MEDS: IPRATROPIUM BROMIDE 0.5 MG/2.5 ML NEB SOLUTION NEB PRN ×3 (01:17→20:42)
[2017-07-15] MEDS: ALBUTEROL SULFATE 2.5 MG/0.5 ML NEB SOLUTION NEB PRN ×3 (01:17→20:42)
[2017-07-15] MEDS: LEVOTHYROXINE SODIUM 112 MCG TABLET PO SCH (06:18)
[2017-07-15] MEDS: HydrALAZINE HCL 50 MG TABLET PO SCH ×3 (06:18→18:46)
[2017-07-15 07:04] LABS: CALCIUM, TOTAL 8.5 mg/dL (8.8-10.5); CREATININE 2.78 mg/dL (0.60-1.30); MAGNESIUM 2.7 mg/dL (1.80-2.40); PHOSPHORUS 4.1 mg/dL (2.5-4.9); POTASSIUM 3.9 mmol/L (3.5-5.1)
[2017-07-15] MEDS: BUMETANIDE 0.25 MG/ML 4 ML VIAL IVP SCH (09:37)
[2017-07-15] MEDS: CloNIDine HCL 0.2 MG TABLET PO SCH ×3 (09:37→20:55)
[2017-07-15] MEDS: PANTOPRAZOLE SODIUM 40 MG DR TABLET PO SCH ×2 (09:37→20:55)
[2017-07-15] MEDS: CARVEDILOL 25 MG TABLET PO SCH ×2 (09:38→20:55)
[2017-07-15] MEDS: ATORVASTATIN CALCIUM 10 MG TABLET PO SCH (09:38)
[2017-07-15] MEDS: MULTIVITAMINS WITH MINERALS, THERAPEUTIC TABLET PO SCH (09:38)
[2017-07-15] MEDS: DOCUSATE SODIUM 100 MG CAPSULE PO SCH ×2 (09:38→20:55)
[2017-07-15] MEDS: NIFEdipine 60 MG ER TABLET PO SCH ×2 (11:28→20:55)
[2017-07-15] MEDS ORDERED: SODIUM CHLORIDE 0.9% 50 ML ONE (16:19)
[2017-07-15] MEDS: CefTRIAXone 1 GM/DEXTROSE 50 ML IV SCH (16:35)
[2017-07-15] MEDS: SIMVASTATIN 10 MG TABLET PO SCH (20:59)
[2017-07-16] VITALS (7 sets, daily range): BP systolic 126–175; BP diastolic 61–87
[2017-07-16] MEDS: HydrALAZINE HCL 50 MG TABLET PO SCH ×5 (00:29→23:51)
[2017-07-16 06:08] LABS: CALCIUM, TOTAL 8.4 mg/dL (8.8-10.5); CREATININE 3.01 mg/dL (0.60-1.30); POTASSIUM 4.3 mmol/L (3.5-5.1)
[2017-07-16] MEDS: LEVOTHYROXINE SODIUM 112 MCG TABLET PO SCH (06:32)
[2017-07-16] MEDS: PANTOPRAZOLE SODIUM 40 MG DR TABLET PO SCH ×2 (08:15→20:26)
[2017-07-16] MEDS: ATORVASTATIN CALCIUM 10 MG TABLET PO SCH (08:15)
[2017-07-16] MEDS: DOCUSATE SODIUM 100 MG CAPSULE PO SCH ×2 (08:15→20:25)
[2017-07-16] MEDS: MULTIVITAMINS WITH MINERALS, THERAPEUTIC TABLET PO SCH (08:15)
[2017-07-16] MEDS: CloNIDine HCL 0.2 MG TABLET PO SCH ×3 (08:16→22:10)
[2017-07-16] MEDS: HYDROCODONE/ACETAMINOPHEN 5-325 MG TABLET PO PRN (08:16)
[2017-07-16] MEDS: CARVEDILOL 25 MG TABLET PO SCH ×2 (08:16→20:25)
[2017-07-16] MEDS: NIFEdipine 60 MG ER TABLET PO SCH ×2 (12:53→20:25)
[2017-07-16] MEDS: SODIUM CHLORIDE 0.9% 500 ML IV SCH ×2 (13:04→22:47)
[2017-07-16] MEDS: CefTRIAXone 1 GM/DEXTROSE 50 ML IV SCH (16:53)
[2017-07-16] MEDS: ZOLPIDEM TARTRATE 5 MG TABLET PO PRN (22:11)
[2017-07-17 04:51] VITALS: BP 159/65
[2017-07-17] MEDS: LEVOTHYROXINE SODIUM 112 MCG TABLET PO SCH (06:32)
[2017-07-17] MEDS: HydrALAZINE HCL 50 MG TABLET PO SCH ×3 (06:32→17:07)
[2017-07-17 08:24] VITALS: BP 146/63
[2017-07-17] MEDS: SODIUM CHLORIDE 0.9% 500 ML IV SCH (09:13)
[2017-07-17] MEDS: PANTOPRAZOLE SODIUM 40 MG DR TABLET PO SCH (09:16)
[2017-07-17] MEDS: ATORVASTATIN CALCIUM 10 MG TABLET PO SCH (09:16)
[2017-07-17] MEDS: CloNIDine HCL 0.2 MG TABLET PO SCH ×2 (09:17→17:07)
[2017-07-17] MEDS: MULTIVITAMINS WITH MINERALS, THERAPEUTIC TABLET PO SCH (09:17)
[2017-07-17] MEDS: CARVEDILOL 25 MG TABLET PO SCH (09:17)
[2017-07-17] MEDS: DOCUSATE SODIUM 100 MG CAPSULE PO SCH (09:17)
[2017-07-17] MEDS: NIFEdipine 60 MG ER TABLET PO SCH (09:17)
[2017-07-17] MEDS: EPOETIN ALFA 10,000 UNITS/ML VIAL SQ SCH (10:24)
[2017-07-17 12:06] VITALS: BP 154/80
[2017-07-17 12:51] LABS: CALCIUM, TOTAL 8.1 mg/dL (8.8-10.5); CREATININE 3.12 mg/dL (0.60-1.30); POTASSIUM 4.7 mmol/L (3.5-5.1)
[2017-07-17] MEDS: MORPHINE SULFATE 2 MG/ML SYRINGE IVP PRN (13:33)
[2017-07-17 14:57] LABS: BASOPHILS % (AUTO) 0.6 % (0.0-2.0); EOSINOPHILS % (AUTO) 0.3 % (1.0-6.0); HEMATOCRIT 22.8 % (36-46); HEMOGLOBIN 7.7 g/dL (12.0-16.0); LYMPHOCYTES # (AUTO) 1.2 K/uL (1.0-4.8); LYMPHOCYTES % (AUTO) 14.7 % (22.0-44.0); MEAN CORPUSCULAR HEMOGLOBIN 30.6 pg (26.0-34.0); MEAN CORPUSCULAR HGB CONC 33.8 G/dL (31.0-37.0); MEAN CORPUSCULAR VOLUME 91 fL (80-100); MONOCYTES # (AUTO) 0.5 K/uL (0.1-1.0); MONOCYTES % (AUTO) 5.5 % (2.0-9.0); NEUTROPHILS # (AUTO) 6.7 K/uL (1.8-7.7); NEUTROPHILS % (AUTO) 78.9 % (40.0-70.0); PLATELET COUNT (AUTO) 290 K/uL (150-450); RED BLOOD CELL COUNT(AUTO) 2.51 MIL/uL (4.00-5.20); RED CELL DISTRIBUTION WIDTH 16.5 % (11.5-14.5); WHITE BLOOD COUNT (AUTO) 8.5 K/uL (4.5-11.0)
[2017-07-17] MEDS: HYDROCODONE/ACETAMINOPHEN 5-325 MG TABLET PO PRN (15:57)
[2017-07-17 16:34] VITALS: BP 149/61
[2017-07-17] MEDS: CefTRIAXone 1 GM/DEXTROSE 50 ML IV SCH (17:08)
[2017-07-17] MEDS ORDERED: CEFT1PB IV (18:51)
[2017-07-17] MEDS ORDERED: CLON.2 PO (18:52)
[2017-07-17] MEDS ORDERED: PANT40TA25 PO (18:52)
[2017-07-17] MEDS ORDERED: DSS100 PO (18:52)
== END 2017-07-17 18:50 | DRG 70 ==
LOC: EMS 12:40 → 5S 16:02 → ICU 07-09 14:45 → 5S 07-14 06:00
PROVIDERS: ADMIT Internal Medicine; ATTEND Internal Medicine
PROC: 30233N1 Transfusion of Nonautologous Red Blood Cells into Peripheral Vein, Percutaneous Approach (ICD-10-PCS; 2017-07-09)
PROC: 3E0G8GC Introduction of Other Therapeutic Substance into Upper GI, Via Natural or Artificial Opening Endoscopic (ICD-10-PCS; 2017-07-10)
PROC: 0W3P8ZZ Control Bleeding in Gastrointestinal Tract, Via Natural or Artificial Opening Endoscopic (ICD-10-PCS; principal; 2017-07-10 12:30)
PROC: 0W3P8ZZ Control Bleeding in Gastrointestinal Tract, Via Natural or Artificial Opening Endoscopic (ICD-10-PCS; 2017-07-11)
PROC: 3E0G8GC Introduction of Other Therapeutic Substance into Upper GI, Via Natural or Artificial Opening Endoscopic (ICD-10-PCS; 2017-07-11)
DX: G93.41 Metabolic encephalopathy (principal); N17.0 Acute kidney failure with tubular necrosis; J96.91 Respiratory failure, unspecified with hypoxia; I50.31 Acute diastolic (congestive) heart failure; I49.5 Sick sinus syndrome; E11.22 Type 2 diabetes mellitus with diabetic chronic kidney disease; F25.9 Schizoaffective disorder, unspecified; N18.4 Chronic kidney disease, stage 4 (severe); K92.2 Gastrointestinal hemorrhage, unspecified; N39.0 Urinary tract infection, site not specified; I13.0 Hypertensive heart and chronic kidney disease with heart failure and stage 1 through stage 4 chronic kidney disease, or unspecified chronic kidney disease; D64.9 Anemia, unspecified; E86.0 Dehydration; I10 Essential (primary) hypertension; E03.9 Hypothyroidism, unspecified; F99 Mental disorder, not otherwise specified; E78.5 Hyperlipidemia, unspecified; F41.9 Anxiety disorder, unspecified; J45.909 Unspecified asthma, uncomplicated; M19.90 Unspecified osteoarthritis, unspecified site; N05.9 Unspecified nephritic syndrome with unspecified morphologic changes; N28.89 Other specified disorders of kidney and ureter; R29.6 Repeated falls; B96.20 Unspecified Escherichia coli [E. coli] as the cause of diseases classified elsewhere; Z79.82 Long term (current) use of aspirin; Z79.899 Other long term (current) drug therapy; Z90.5 Acquired absence of kidney; Z95.0 Presence of cardiac pacemaker; Z90.710 Acquired absence of both cervix and uterus; Z91.81 History of falling
CPT/HCPCS: 51702; 70450; 76770; 81050; 82570; 82575; 82607; 82746; 82805; 82962; 83540; 83550; 83735; 83935; 84100; 84156; 84300; 85014; 85018; 86850; 86900; 86901; 86920; 87081; 87086; 93005; 93306; 93971; 94640; 94660; 97110; 97162; 97530; 99285; C9113; J0171; J0360; J0696; J0885; J1610; J1644; J1940; J2250; J2270; J2370; J2405; J2597; J2704; J3010; J3490; J7030; J7040; J7050; J7060; P9016

== ENCOUNTER 2017-09-25 11:38 | Emergency (ER) | payer MEDICARE, MEDICAID ==
[~2017-09-25] VITALS: Ht 154.9 cm; Wt 55.0 kg
[~2017-09-25 11:38] MED LIST changes: -ALBU8HFA4 IH; +ATOR10TA84 PO; +CARV25 PO; +CLON.2 PO; +DSS100 PO; -ESCI10TA PO; +HYDR-2924 PO; -LORA-192 PO; -METO-558 PO; +NIFE60TA71 PO; +PANT40TA25 PO; -RISP1TAB89 PO; -SIMV5TAB6 PO; -TEMA15CA PO
[2017-09-25] MEDS ORDERED: SILVER SULFADIAZINE 1% 25 GM CREAM TP ONE (15:00)
[2017-09-25 15:24] VITALS: BP 151/85
== END 2017-09-25 17:06 | disposition home or self-care (01) ==
LOC: EMS 11:40
DX: S51.811A Laceration without foreign body of right forearm, initial encounter (principal); S61.411A Laceration without foreign body of right hand, initial encounter; I12.0 Hypertensive chronic kidney disease with stage 5 chronic kidney disease or end stage renal disease; N18.6 End stage renal disease; F20.9 Schizophrenia, unspecified; F41.9 Anxiety disorder, unspecified; E03.9 Hypothyroidism, unspecified; E78.00 Pure hypercholesterolemia, unspecified; J45.909 Unspecified asthma, uncomplicated; Z99.2 Dependence on renal dialysis; W19.XXXA Unspecified fall, initial encounter; Y93.89 Activity, other specified; Y92.89 Other specified places as the place of occurrence of the external cause; Y99.8 Other external cause status
CPT/HCPCS: 99284

== ENCOUNTER 2018-02-05 09:44 | Inpatient (IN) | payer MEDICARE, MEDICAID ==
[~2018-02-05] VITALS: Ht 152.4 cm; Wt 57.0 kg
[2018-02-05] MEDS: OXYGEN THERAPY IH SCH ×2 (10:54→21:31)
[2018-02-05] MEDS ORDERED: FUROSEMIDE 40 MG/4 ML VIAL IVP ONE (11:00)
[2018-02-05 11:22] LABS: BASOPHILS % (AUTO) 1.2 % (0.0-2.0); EOSINOPHILS % (AUTO) 0.1 % (1.0-6.0); HEMOGLOBIN 10.2 g/dL (12.0-16.0); LYMPHOCYTES # (AUTO) 0.8 K/uL (1.0-4.8); LYMPHOCYTES % (AUTO) 9.5 % (22.0-44.0); MEAN CORPUSCULAR HEMOGLOBIN 32.5 pg (26.0-34.0); MEAN CORPUSCULAR HGB CONC 35.1 G/dL (31.0-37.0); MEAN CORPUSCULAR VOLUME 93 fL (80-100); MONOCYTES # (AUTO) 0.3 K/uL (0.1-1.0); NEUTROPHILS # (AUTO) 7.7 K/uL (1.8-7.7); PLATELET COUNT (AUTO) 224 K/uL (150-450); RED BLOOD CELL COUNT(AUTO) 3.13 MIL/uL (4.00-5.20); RED CELL DISTRIBUTION WIDTH 16.3 % (11.5-14.5)
[2018-02-05 11:29] LABS: NEUTROPHILS % (AUTO) 86.2 % (40.0-70.0)
[2018-02-05 11:32] LABS: CALCIUM, TOTAL 9.1 mg/dL (8.8-10.5); CREATININE 5.79 mg/dL (0.60-1.30); POTASSIUM 5.3 mmol/L (3.5-5.1)
[2018-02-05 11:45] LABS: LACTIC ACID 0.9 mmol/L (0.4-2.0)
[2018-02-05 11:51] LABS: ALBUMIN 3.5 g/dL (3.4-5.0); BILIRUBIN,TOTAL 0.7 mg/dL (0.1-1.0); TOTAL PROTEIN, SERUM 7.3 g/dL (6.4-8.2)
[2018-02-05] MEDS ORDERED: HEPARIN SODIUM,PORCINE 1,000 UNITS/ML VIAL IVP ONE (12:00)
[2018-02-05] MEDS ORDERED: NITROGLYCERIN 2% (1 GM=INCH) PACKET TP ONE (13:30)
[2018-02-05] MEDS ORDERED: ONDANSETRON HCL 4 MG/2 ML VIAL IVP PRN (13:30)
[2018-02-05] MEDS ORDERED: 0.9% SODIUM CHLORIDE 10 ML SYRINGE IVP PRN (13:30)
[2018-02-05] MEDS ORDERED: ACETAMINOPHEN 325 MG TABLET PO PRN (13:30)
[2018-02-05] MEDS ORDERED: EPOETIN ALFA 10,000 UNITS/ML 2 ML VIAL SQ ONE (14:45)
[2018-02-05 15:33] VITALS: BP 153/68
[2018-02-05 20:10] VITALS: BP 178/68
[2018-02-05 21:26] VITALS: BP 172/68
[2018-02-05 23:30] VITALS: BP 190/72
[2018-02-06] VITALS (9 sets, daily range): BP systolic 118–184; BP diastolic 53–81
[2018-02-06] MEDS: NIFEdipine 60 MG ER TABLET PO SCH ×3 (00:16→21:13)
[2018-02-06] MEDS: HydrALAZINE HCL 50 MG TABLET PO SCH ×3 (00:16→15:48)
[2018-02-06] MEDS: CARVEDILOL 25 MG TABLET PO SCH ×2 (08:38→21:13)
[2018-02-06] MEDS: CloNIDine HCL 0.2 MG TABLET PO SCH ×3 (09:35→21:13)
[2018-02-07 00:40] VITALS: BP 117/55
[2018-02-07 04:54] VITALS: BP 118/51
[2018-02-07] MEDS ORDERED: LEVOTHYROXINE SODIUM 112 MCG TABLET PO SCH (06:30)
[2018-02-07 06:37] LABS: CALCIUM, TOTAL 7.7 mg/dL (8.8-10.5); CREATININE 5.6 mg/dL (0.60-1.30); MAGNESIUM 1.9 mg/dL (1.80-2.40); PHOSPHORUS 4.7 mg/dL (2.5-4.9); POTASSIUM 4.6 mmol/L (3.5-5.1)
[2018-02-07] MEDS: HydrALAZINE HCL 50 MG TABLET PO SCH ×3 (08:00→16:41)
[2018-02-07 08:13] VITALS: BP 121/55
[2018-02-07] MEDS: CloNIDine HCL 0.2 MG TABLET PO SCH ×2 (09:00→16:42)
[2018-02-07 11:40] VITALS: BP 123/60
[2018-02-07] MEDS ORDERED: SEVELAMER CARBONATE 800 MG TABLET PO SCH (12:00)
[2018-02-07] MEDS ORDERED: MANNITOL 25%-12.5 GM/50 ML VIAL IVP PRN ×2 (14:15→15:00)
[2018-02-07] MEDS: CARVEDILOL 25 MG TABLET PO SCH (14:24)
[2018-02-07] MEDS: NIFEdipine 60 MG ER TABLET PO SCH (14:24)
[2018-02-07] MEDS ORDERED: HEPARIN SODIUM,PORCINE 1,000 UNITS/ML VIAL IVP ONE ×3 (15:00→18:03)
[2018-02-07 16:16] VITALS: BP 132/56
[2018-02-07] MEDS ORDERED: SEVE800PW PO (17:32)
== END 2018-02-07 17:55 | disposition home or self-care (01) | DRG 640 ==
LOC: EMS 09:46 → 5S 13:42
PROVIDERS: ADMIT Hospitalist; ATTEND Hospitalist
PROC: 5A1D70Z Performance of Urinary Filtration, Intermittent, Less than 6 Hours Per Day (ICD-10-PCS; 2018-02-05)
PROC: 5A1D70Z Performance of Urinary Filtration, Intermittent, Less than 6 Hours Per Day (ICD-10-PCS; principal; 2018-02-07)
DX: E87.70 Fluid overload, unspecified (principal); N18.6 End stage renal disease; I12.0 Hypertensive chronic kidney disease with stage 5 chronic kidney disease or end stage renal disease; D63.1 Anemia in chronic kidney disease; E03.9 Hypothyroidism, unspecified; E78.00 Pure hypercholesterolemia, unspecified; E78.5 Hyperlipidemia, unspecified; F20.9 Schizophrenia, unspecified; F41.9 Anxiety disorder, unspecified; J45.909 Unspecified asthma, uncomplicated; Z90.5 Acquired absence of kidney; Z99.2 Dependence on renal dialysis
CPT/HCPCS: 83605; 83735; 84100; 87040; 87081; 93005; 96374; 99291; J0885; J1644; J1940

== ENCOUNTER 2018-02-12 15:37 | Inpatient (IN) | payer MEDICARE, MEDICAID ==
[~2018-02-12] VITALS: Ht 154.9 cm; Wt 54.5 kg
[~2018-02-12 15:37] MED LIST changes: +SEVE800PW PO
[2018-02-12] MEDS ORDERED: FURO80 PO (15:56)
[2018-02-12] MEDS ORDERED: LEVO250 PO (15:56)
[2018-02-12] MEDS ORDERED: FLUC100T PO (15:56)
[2018-02-12] MEDS ORDERED: EPOE10003 SQ (15:56)
[2018-02-12] MEDS ORDERED: FOLI1CAP2 PO (15:56)
[2018-02-12] MEDS ORDERED: LOSA50TA37 PO (15:56)
[2018-02-12] MEDS ORDERED: IPRATROPIUM BROMIDE 0.5 MG/2.5 ML NEB SOLUTION NEB ONE (16:30)
[2018-02-12] MEDS ORDERED: ALBUTEROL SULFATE 2.5 MG/0.5 ML NEB SOLUTION NEB ONE (16:30)
[2018-02-12 16:55] LABS: BASOPHILS % (AUTO) 1.3 % (0.0-2.0); EOSINOPHILS % (AUTO) 0.1 % (1.0-6.0); HEMATOCRIT 28.1 % (36-46); HEMOGLOBIN 9.7 g/dL (12.0-16.0); LYMPHOCYTES # (AUTO) 1.7 K/uL (1.0-4.8); LYMPHOCYTES % (AUTO) 30.8 % (22.0-44.0); MEAN CORPUSCULAR HEMOGLOBIN 32.3 pg (26.0-34.0); MEAN CORPUSCULAR HGB CONC 34.6 G/dL (31.0-37.0); MEAN CORPUSCULAR VOLUME 93 fL (80-100); MONOCYTES # (AUTO) 0.6 K/uL (0.1-1.0); MONOCYTES % (AUTO) 11.8 % (2.0-9.0); NEUTROPHILS # (AUTO) 3.1 K/uL (1.8-7.7); PLATELET COUNT (AUTO) 219 K/uL (150-450); RED BLOOD CELL COUNT(AUTO) 3.02 MIL/uL (4.00-5.20); RED CELL DISTRIBUTION WIDTH 16.2 % (11.5-14.5)
[2018-02-12 17:06] LABS: CALCIUM, TOTAL 9.2 mg/dL (8.8-10.5); CREATININE 2.72 mg/dL (0.60-1.30); POTASSIUM 4.1 mmol/L (3.5-5.1)
[2018-02-12 17:13] LABS: ALBUMIN 3.4 g/dL (3.4-5.0); BILIRUBIN,TOTAL 0.6 mg/dL (0.1-1.0); TOTAL PROTEIN, SERUM 7.2 g/dL (6.4-8.2)
[2018-02-12] MEDS ORDERED: MethylPREDNISolone SOD SUCC 125 MG/2 ML VIAL IVP ONE (17:45)
[2018-02-12] MEDS ORDERED: BISACODYL 10 MG RECTAL RECTAL SUPPOSITORY PR PRN (20:15)
[2018-02-12] MEDS ORDERED: GuaiFENesin/D-METHORPHAN/PHENYLEPH 5 ML LIQUID ORAL.SYG PO PRN (20:15)
[2018-02-12] MEDS ORDERED: ACETAMINOPHEN 325 MG TABLET PO PRN (20:15)
[2018-02-12] MEDS ORDERED: IPRATROPIUM BROMIDE 0.5 MG/2.5 ML NEB SOLUTION NEB PRN (20:15)
[2018-02-12] MEDS ORDERED: MAGNESIUM HYDROXIDE SUSPENSION 30 ML UDCUP PO PRN (20:15)
[2018-02-12] MEDS ORDERED: BENZOCAINE/MENTHOL LOZENGE MM PRN (20:15)
[2018-02-12] MEDS ORDERED: OxyCODONE HCL/ACETAMINOPHEN 5-325 MG TABLET PO PRN (20:15)
[2018-02-12] MEDS ORDERED: ALBUTEROL SULFATE 2.5 MG/0.5 ML NEB SOLUTION NEB PRN (20:15)
[2018-02-12] MEDS ORDERED: ONDANSETRON HCL 4 MG/2 ML VIAL IVP PRN (20:15)
[2018-02-12] MEDS ORDERED: ZOLPIDEM TARTRATE 5 MG TABLET PO PRN (20:15)
[2018-02-12 20:45] VITALS: BP 173/74
[2018-02-12] MEDS: CloNIDine HCL 0.2 MG TABLET PO SCH (21:41)
[2018-02-12] MEDS: PANTOPRAZOLE SODIUM 40 MG DR TABLET PO SCH (21:41)
[2018-02-12] MEDS: CARVEDILOL 25 MG TABLET PO SCH (21:41)
[2018-02-12 23:20] VITALS: BP 178/74
[2018-02-13 03:23] VITALS: BP 158/62
[2018-02-13] MEDS: LEVOTHYROXINE SODIUM 112 MCG TABLET PO SCH (06:23)
[2018-02-13 07:46] VITALS: BP 190/76
[2018-02-13] MEDS: CloNIDine HCL 0.2 MG TABLET PO SCH ×3 (08:29→21:08)
[2018-02-13] MEDS: LOSARTAN POTASSIUM 50 MG TABLET PO SCH (08:29)
[2018-02-13] MEDS: CARVEDILOL 25 MG TABLET PO SCH ×2 (08:29→21:08)
[2018-02-13] MEDS: MethylPREDNISolone SOD SUCC 125 MG/2 ML VIAL IVP SCH ×2 (08:29→15:02)
[2018-02-13] MEDS: SEVELAMER CARBONATE 800 MG POWDER PACKET PO SCH ×3 (08:29→18:23)
[2018-02-13] MEDS: PANTOPRAZOLE SODIUM 40 MG DR TABLET PO SCH ×2 (08:29→21:08)
[2018-02-13] MEDS: VITAMIN B COMP/VIT C/FOLIC ACID CAPSULE PO SCH (08:29)
[2018-02-13] MEDS: NIFEdipine 60 MG ER TABLET PO SCH ×2 (08:30→21:08)
[2018-02-13] MEDS ORDERED: ATORVASTATIN CALCIUM 10 MG TABLET PO SCH (09:00)
[2018-02-13 11:44] VITALS: BP 161/66
[2018-02-13] MEDS: AmLODIPine BESYLATE 10 MG TABLET PO SCH (15:02)
[2018-02-13 15:45] VITALS: BP 128/57
[2018-02-13 19:50] VITALS: BP 135/62
[2018-02-13] MEDS: FUROSEMIDE 20 MG/2 ML VIAL IVP SCH (21:09)
[2018-02-14] VITALS (7 sets, daily range): BP systolic 116–151; BP diastolic 52–77
[2018-02-14] MEDS: MethylPREDNISolone SOD SUCC 125 MG/2 ML VIAL IVP SCH ×3 (00:31→16:28)
[2018-02-14] MEDS: LEVOTHYROXINE SODIUM 112 MCG TABLET PO SCH (06:14)
[2018-02-14 06:30] LABS: BASOPHILS % (AUTO) 0.1 % (0.0-2.0); EOSINOPHILS % (AUTO) 0 % (1.0-6.0); HEMATOCRIT 26.5 % (36-46); HEMOGLOBIN 9.2 g/dL (12.0-16.0); LYMPHOCYTES # (AUTO) 0.9 K/uL (1.0-4.8); LYMPHOCYTES % (AUTO) 12.8 % (22.0-44.0); MEAN CORPUSCULAR HEMOGLOBIN 32.8 pg (26.0-34.0); MEAN CORPUSCULAR HGB CONC 34.9 G/dL (31.0-37.0); MEAN CORPUSCULAR VOLUME 94 fL (80-100); MONOCYTES # (AUTO) 0.1 K/uL (0.1-1.0); NEUTROPHILS # (AUTO) 5.8 K/uL (1.8-7.7); NEUTROPHILS % (AUTO) 85.1 % (40.0-70.0); PLATELET COUNT (AUTO) 202 K/uL (150-450); RED BLOOD CELL COUNT(AUTO) 2.82 MIL/uL (4.00-5.20); RED CELL DISTRIBUTION WIDTH 16.5 % (11.5-14.5)
[2018-02-14 07:37] LABS: CALCIUM, TOTAL 8.5 mg/dL (8.8-10.5); CREATININE 5.75 mg/dL (0.60-1.30); POTASSIUM 5.1 mmol/L (3.5-5.1)
[2018-02-14] MEDS: SEVELAMER CARBONATE 800 MG POWDER PACKET PO SCH ×3 (08:00→18:19)
[2018-02-14] MEDS: VITAMIN B COMP/VIT C/FOLIC ACID CAPSULE PO SCH (08:32)
[2018-02-14] MEDS: FUROSEMIDE 20 MG/2 ML VIAL IVP SCH ×2 (08:32→20:18)
[2018-02-14] MEDS: CloNIDine HCL 0.2 MG TABLET PO SCH ×3 (08:32→20:18)
[2018-02-14] MEDS: PANTOPRAZOLE SODIUM 40 MG DR TABLET PO SCH ×2 (08:33→20:18)
[2018-02-14] MEDS: EPOETIN ALFA 10,000 UNITS/ML VIAL SQ SCH (08:36)
[2018-02-14] MEDS: NIFEdipine 60 MG ER TABLET PO SCH ×2 (09:00→20:18)
[2018-02-14] MEDS: LOSARTAN POTASSIUM 50 MG TABLET PO SCH (09:00)
[2018-02-14] MEDS: CARVEDILOL 25 MG TABLET PO SCH ×2 (09:00→20:18)
[2018-02-14] MEDS: AmLODIPine BESYLATE 10 MG TABLET PO SCH (09:00)
[2018-02-14] MEDS ORDERED: SODIUM CHLORIDE 0.9% 2,000 ML IV ONE (10:21)
[2018-02-14 11:46] LABS: INR 1.3 (0.9-1.1)
[2018-02-14] MEDS ORDERED: HEPARIN SODIUM,PORCINE 1,000 UNITS/ML VIAL IVP ONE (18:22)
[2018-02-15] MEDS: MethylPREDNISolone SOD SUCC 125 MG/2 ML VIAL IVP SCH ×2 (00:31→09:31)
[2018-02-15 04:12] VITALS: BP 150/73
[2018-02-15] MEDS: LEVOTHYROXINE SODIUM 112 MCG TABLET PO SCH (06:12)
[2018-02-15 07:34] VITALS: BP 119/54
[2018-02-15 07:37] LABS: BASOPHILS % (AUTO) 0.3 % (0.0-2.0); EOSINOPHILS % (AUTO) 0 % (1.0-6.0); HEMATOCRIT 28.2 % (36-46); HEMOGLOBIN 9.6 g/dL (12.0-16.0); LYMPHOCYTES # (AUTO) 0.6 K/uL (1.0-4.8); LYMPHOCYTES % (AUTO) 8.4 % (22.0-44.0); MEAN CORPUSCULAR HEMOGLOBIN 32.6 pg (26.0-34.0); MEAN CORPUSCULAR HGB CONC 34.2 G/dL (31.0-37.0); MEAN CORPUSCULAR VOLUME 95 fL (80-100); MONOCYTES # (AUTO) 0.3 K/uL (0.1-1.0); MONOCYTES % (AUTO) 4.1 % (2.0-9.0); PLATELET COUNT (AUTO) 196 K/uL (150-450); RED BLOOD CELL COUNT(AUTO) 2.96 MIL/uL (4.00-5.20); RED CELL DISTRIBUTION WIDTH 16.6 % (11.5-14.5)
[2018-02-15 07:41] LABS: NEUTROPHILS % (AUTO) 87.2 % (40.0-70.0)
[2018-02-15 07:45] LABS: CALCIUM, TOTAL 8.6 mg/dL (8.8-10.5); CREATININE 3.87 mg/dL (0.60-1.30); POTASSIUM 4.7 mmol/L (3.5-5.1)
[2018-02-15] MEDS: PANTOPRAZOLE SODIUM 40 MG DR TABLET PO SCH ×2 (09:31→20:21)
[2018-02-15] MEDS: CARVEDILOL 25 MG TABLET PO SCH ×2 (09:31→20:21)
[2018-02-15] MEDS: FUROSEMIDE 20 MG/2 ML VIAL IVP SCH ×2 (09:31→20:21)
[2018-02-15] MEDS: VITAMIN B COMP/VIT C/FOLIC ACID CAPSULE PO SCH (09:31)
[2018-02-15] MEDS: SEVELAMER CARBONATE 800 MG POWDER PACKET PO SCH ×3 (09:31→17:57)
[2018-02-15 09:52] LABS: SPECIMENTYPE,BODY FLUID THORACENTESIS
[2018-02-15] MEDS: AmLODIPine BESYLATE 10 MG TABLET PO SCH (10:09)
[2018-02-15] MEDS: CloNIDine HCL 0.2 MG TABLET PO SCH ×3 (10:14→20:21)
[2018-02-15] MEDS: LOSARTAN POTASSIUM 50 MG TABLET PO SCH (10:51)
[2018-02-15] MEDS: NIFEdipine 60 MG ER TABLET PO SCH ×2 (10:51→21:24)
[2018-02-15 11:36] VITALS: BP 133/63
[2018-02-15 11:43] LABS: APPEARANCE,SPUN,BODY FLUID CLEAR (CLEAR); APPEARANCE,UNSPUN,BODY FLUID HAZY (CLEAR)
[2018-02-15 11:44] LABS: COLOR,BODY FLUID YELLOW (LT YELLOW); TOTAL VOLUME,BODY FLUID 850 mL
[2018-02-15 11:46] LABS: LYMPHOCYTES,BODY FLUID 75 %; MONOCYTES,BODY FLUID 14 %; NEUTROPHILS,BODY FLUID 10 %; OTHER CELLS,BODY FLUID 1; WBC, BODY FLUID 14 /cu. mm.
[2018-02-15 11:47] LABS: BASOPHILS,BODY FLUID 0 %; EOSINOPHILS,BF (ANAL) 0 %; PH, BODY FLUID 8
[2018-02-15 15:51] VITALS: BP 130/66
[2018-02-15 20:15] VITALS: BP 116/59
[2018-02-16 00:23] VITALS: BP 122/59
[2018-02-16 04:46] VITALS: BP 131/56
[2018-02-16 06:16] LABS: BASOPHILS % (AUTO) 0.5 % (0.0-2.0); EOSINOPHILS % (AUTO) 0.1 % (1.0-6.0); HEMATOCRIT 27.6 % (36-46); HEMOGLOBIN 9.8 g/dL (12.0-16.0); LYMPHOCYTES # (AUTO) 1.9 K/uL (1.0-4.8); LYMPHOCYTES % (AUTO) 20.7 % (22.0-44.0); MEAN CORPUSCULAR HEMOGLOBIN 32.9 pg (26.0-34.0); MEAN CORPUSCULAR HGB CONC 35.4 G/dL (31.0-37.0); MEAN CORPUSCULAR VOLUME 93 fL (80-100); MONOCYTES % (AUTO) 10.6 % (2.0-9.0); NEUTROPHILS # (AUTO) 6.1 K/uL (1.8-7.7); NEUTROPHILS % (AUTO) 68.1 % (40.0-70.0); PLATELET COUNT (AUTO) 190 K/uL (150-450); RED BLOOD CELL COUNT(AUTO) 2.96 MIL/uL (4.00-5.20); RED CELL DISTRIBUTION WIDTH 16.7 % (11.5-14.5)
[2018-02-16] MEDS: LEVOTHYROXINE SODIUM 112 MCG TABLET PO SCH (06:23)
[2018-02-16 06:28] LABS: CALCIUM, TOTAL 8.5 mg/dL (8.8-10.5); CREATININE 5.25 mg/dL (0.60-1.30); POTASSIUM 4.9 mmol/L (3.5-5.1)
[2018-02-16] MEDS ORDERED: SODIUM CHLORIDE 0.9% 2,000 ML IV ONE (06:48)
[2018-02-16 07:38] VITALS: BP 104/51
[2018-02-16] MEDS: SEVELAMER CARBONATE 800 MG POWDER PACKET PO SCH ×2 (08:00→12:00)
[2018-02-16] MEDS: CARVEDILOL 25 MG TABLET PO SCH (09:00)
[2018-02-16] MEDS: LOSARTAN POTASSIUM 50 MG TABLET PO SCH (09:00)
[2018-02-16 11:44] VITALS: BP 106/50
[2018-02-16] MEDS: PANTOPRAZOLE SODIUM 40 MG DR TABLET PO SCH (11:59)
[2018-02-16] MEDS: CloNIDine HCL 0.2 MG TABLET PO SCH (11:59)
[2018-02-16] MEDS: EPOETIN ALFA 10,000 UNITS/ML VIAL SQ SCH (11:59)
[2018-02-16] MEDS: FUROSEMIDE 20 MG/2 ML VIAL IVP SCH (11:59)
[2018-02-16] MEDS: VITAMIN B COMP/VIT C/FOLIC ACID CAPSULE PO SCH (11:59)
[2018-02-16] MEDS ORDERED: HEPARIN SODIUM,PORCINE 1,000 UNITS/ML VIAL IVP ONE (12:29)
== END 2018-02-16 12:30 | disposition home or self-care (01) | DRG 133 ==
LOC: EMS 15:38 → 5S 18:51 → 5N 02-13 07:01
PROVIDERS: ADMIT Internal Medicine; ATTEND Internal Medicine
PROC: 0W993ZZ Drainage of Right Pleural Cavity, Percutaneous Approach (ICD-10-PCS; principal; 2018-02-12)
PROC: 5A1D70Z Performance of Urinary Filtration, Intermittent, Less than 6 Hours Per Day (ICD-10-PCS; 2018-02-14)
PROC: 5A1D70Z Performance of Urinary Filtration, Intermittent, Less than 6 Hours Per Day (ICD-10-PCS; 2018-02-16)
DX: J96.01 Acute respiratory failure with hypoxia (principal); I50.33 Acute on chronic diastolic (congestive) heart failure; N18.6 End stage renal disease; J44.1 Chronic obstructive pulmonary disease with (acute) exacerbation; D63.8 Anemia in other chronic diseases classified elsewhere; I13.2 Hypertensive heart and chronic kidney disease with heart failure and with stage 5 chronic kidney disease, or end stage renal disease; D50.9 Iron deficiency anemia, unspecified; E03.9 Hypothyroidism, unspecified; E78.5 Hyperlipidemia, unspecified; M19.90 Unspecified osteoarthritis, unspecified site; K21.9 Gastro-esophageal reflux disease without esophagitis; I50.32 Chronic diastolic (congestive) heart failure; F20.9 Schizophrenia, unspecified; E78.00 Pure hypercholesterolemia, unspecified; N28.9 Disorder of kidney and ureter, unspecified; F41.9 Anxiety disorder, unspecified; Z90.5 Acquired absence of kidney; I25.10 Atherosclerotic heart disease of native coronary artery without angina pectoris; Z99.2 Dependence on renal dialysis; K59.00 Constipation, unspecified
CPT/HCPCS: 32555; 76942; 82465; 82945; 83615; 83986; 84157; 87015; 87070; 87081; 87205; 87206; 88108; 89051; 93005; 94640; 96374; 99285; G0238; J0885; J1644; J1940; J2930; J7030

== ENCOUNTER → 2018-11-08 | Outpatient (CLI) | payer MEDICARE, MEDICAID ==
[~2018-11-08] MED LIST changes: +EPOE10003 SQ; +FOLI1CAP2 PO; -HYDR-2924 PO; +LOSA50TA64 PO; -NIFE60TA71 PO; +SEVE0.8P6 PO; -SEVE800PW PO
== END | disposition home or self-care (01) ==
LOC: RADPV 10:10
PROVIDERS: ATTEND Internal Medicine
DX: M25.551 Pain in right hip (principal)
CPT/HCPCS: 73521